=== PATIENT | female | born 1965 | race Caucasian/White ===

== ENCOUNTER → 2017-08-16 13:51 | Outpatient (CLI) | payer MEDICARE, OTHER | END | disposition home or self-care (01) | LOC: D.MAMMO 11:00 | DX: Z12.31 Encounter for screening mammogram for malignant neoplasm of breast (principal) ==

== ENCOUNTER 2018-02-03 09:54 | Emergency (ER) | payer MEDICARE, OTHER ==
[2018-02-03 10:48] LABS: APPEARANCE CLEAR (CLEAR); COLOR YELLOW (YELLOW)
[2018-02-03 10:49] LABS: BACTERIA MODERATE /hpf (NONE SEEN); BILIRUBIN NEGATIVE (NEGATIVE); EPITHELIAL CELLS 0-5 /hpf (0-5); GLUCOSE NEGATIVE (NEGATIVE); KETONE NEGATIVE (NEGATIVE); NITRITE NEGATIVE (NEGATIVE); PROTEIN 1+ mg/dL (NEGATIVE); RED CELLS - URINE 0-5 /hpf (0-5); SPECIFIC GRAVITY 1.015 (1.005-1.020); UROBILINOGEN NORMAL (NORMAL); WHITE CELLS - URINE NSEEN /hpf (0-5)
== END 2018-02-03 11:39 ==
LOC: D.ER 09:54
PROVIDERS: Emergency Medicine
DX: M54.5 Low back pain (principal)

== ENCOUNTER → 2018-07-24 10:20 | Outpatient (CLI) | payer MEDICARE, OTHER | END | disposition home or self-care (01) | LOC: D.MRI 10:20 | DX: M51.36 Other intervertebral disc degeneration, lumbar region (principal); R53.1 Weakness ==

== ENCOUNTER 2019-04-21 09:28 | Emergency (ER) | payer MEDICARE, OTHER ==
[~2019-04-21] VITALS: Ht 167.6 cm; Wt 120.9 kg
[2019-04-21 09:29] VITALS: Ht 167.6 cm; Wt 120.9 kg
[2019-04-21] MEDS ORDERED: KLONOPIN0.5 MG PO (09:31)
[2019-04-21] MEDS ORDERED: CO Q-10200 MG PO (09:31)
[2019-04-21] MEDS ORDERED: SYNTHROID112 MCG PO (09:31)
[2019-04-21] MEDS ORDERED: LISINOPRIL5 MG PO (09:32)
[2019-04-21] MEDS ORDERED: FISH OIL 1,0001 CA1 PO (09:32)
[2019-04-21] MEDS ORDERED: CENTRUM COMPLE1 EACH PO (09:32)
[2019-04-21 10:05] LABS: BASOPHILS 0.3 % (0-2); EOSINOPHILS 1.5 % (0-7); HEMATOCRIT 43.3 % (36.0-48.0); HEMOGLOBIN 14.8 g/dL (12-16); IMMATURE GRANULOCYTES 0.3 % (0-5); LYMPHOCYTES 21.1 % (15-50); MCH 30.9 pg (26.0-34.0); MCHC 34.2 g/dL (31.0-37.0); MCV 90.4 fL (80.0-100.0); MEAN PLATELET VOLUME 9.6 fL (7.4-10.4); MONOCYTES 10.9 % (2-11); NEUTROPHILS 65.9 % (40-80); RBC 4.79 10x6/uL (4.00-5.40); RDW 14.7 % (11.5-14.5); WBC 6.5 10x3/uL (4.8-10.8)
[2019-04-21 10:06] LABS: PLATELET COUNT 252 10x3/uL (130-400)
[2019-04-21 10:08] LABS: APPEARANCE CLEAR (CLEAR); COLOR YELLOW (YELLOW)
[2019-04-21 10:09] LABS: BILIRUBIN NEGATIVE (NEGATIVE); GLUCOSE NEGATIVE (NEGATIVE); KETONE NEGATIVE (NEGATIVE); NITRITE NEGATIVE (NEGATIVE); PROTEIN NEGATIVE (NEGATIVE); SPECIFIC GRAVITY 1.005 (1.005-1.020); UROBILINOGEN NORMAL (NORMAL)
[2019-04-21 10:14] LABS: INR 1.05 (0.85-1.17); PROTIME 13.2 SECONDS (11.6-15.0)
[2019-04-21 10:18] LABS: UDS - AMPHET NEGATIVE QUAL (NEGATIVE); UDS - BARB NEGATIVE QUAL (NEGATIVE); UDS - BENZO NEGATIVE QUAL (NEGATIVE); UDS - COCAINE NEGATIVE QUAL (NEGATIVE); UDS - OPIATE NEGATIVE QUAL (NEGATIVE); UDS - PCP NEGATIVE QUAL (NEGATIVE); UDS - THC NEGATIVE QUAL (NEGATIVE)
[2019-04-21 10:23] LABS: ALBUMIN 3.7 g/dL (3.4-5.0); ALKALINE PHOSPHATASE 109 U/L (46-116); ALT (SGPT) 245 U/L (10-68); BILIRUBIN - TOTAL 0.76 mg/dL (0.2-1.3); CALC OSMOLALITY 274 mosm/kg (275-300); CALCIUM 9.6 mg/dL (8.5-10.1); CARBON DIOXIDE 27.2 mmol/L (21.0-32.0); CHLORIDE - SERUM 101 mmol/L (98-107); CREATININE - SERUM 1.4 mg/dL (0.6-1.3); GLUCOSE 128 mg/dL (74-106); POTASSIUM - SERUM 3.7 mmol/L (3.5-5.1); PROTEIN - SERUM 7.5 g/dL (6.4-8.2); SODIUM 137 mmol/L (136-145); UREA NITROGEN 11 mg/dL (7-18); eGFR NON AFRICAN AMERICAN 41 mL/min (90-120)
[2019-04-21 10:33] LABS: CKMB 0.5 U/L (0.0-3.6); CREATINE KINASE 46 UL (21-215); MAGNESIUM - SERUM 2.2 mg/dL (1.8-2.4); TROPONIN-I < 0.017 ng/mL (0.000-0.060)
[2019-04-21 12:00] VITALS: BP 115/85
== END 2019-04-21 12:00 | disposition home or self-care (01) ==
LOC: D.ER 09:28
PROVIDERS: Family Medicine
DX: K71.6 Toxic liver disease with hepatitis, not elsewhere classified (principal); F31.9 Bipolar disorder, unspecified; N28.9 Disorder of kidney and ureter, unspecified; I10 Essential (primary) hypertension

== ENCOUNTER 2019-04-27 15:11 | Emergency (ER) | payer MEDICARE, OTHER ==
[~2019-04-27] VITALS: Ht 167.6 cm; Wt 117.3 kg
[~2019-04-27 15:11] MED LIST: CENTRUM COMPLE1 EACH PO; CO Q-10200 MG PO; FISH OIL 1,0001 CA1 PO; KLONOPIN0.5 MG PO; LISINOPRIL5 MG PO; SYNTHROID112 MCG PO
[2019-04-27 15:14] VITALS: Ht 167.6 cm; Wt 117.3 kg
[2019-04-27] MEDS ORDERED: OTHER MEDS (15:16)
[2019-04-27 15:39] LABS: BASOPHILS 0.3 % (0-2); EOSINOPHILS 1.8 % (0-7); HEMATOCRIT 44.5 % (36.0-48.0); HEMOGLOBIN 15.3 g/dL (12-16); IMMATURE GRANULOCYTES 0.2 % (0-5); LYMPHOCYTES 15.2 % (15-50); MCH 30.8 pg (26.0-34.0); MCHC 34.4 g/dL (31.0-37.0); MCV 89.7 fL (80.0-100.0); MEAN PLATELET VOLUME 9.1 fL (7.4-10.4); MONOCYTES 12.6 % (2-11); NEUTROPHILS 69.9 % (40-80); PLATELET COUNT 213 10x3/uL (130-400); RBC 4.96 10x6/uL (4.00-5.40); RDW 14.8 % (11.5-14.5); WBC 6.3 10x3/uL (4.8-10.8)
--- NOTE | 2019-04-27 15:49 | NUR ---
THE SUICIDE ASSESSMENT RATES HER SCORE LOW, SHE DENIES SI AND DOES NOT REQUIRE 1:1 OBSERVATION.
[2019-04-27 15:53] LABS: ALBUMIN 3.6 g/dL (3.4-5.0); ANION GAP 19.4 mmol/L (8-16); BILIRUBIN - TOTAL 0.99 mg/dL (0.2-1.3); CALCIUM 9.5 mg/dL (8.5-10.1); CARBON DIOXIDE 20.2 mmol/L (21.0-32.0); CREATININE - SERUM 1.9 mg/dL (0.6-1.3); POTASSIUM - SERUM 3.6 mmol/L (3.5-5.1); PROTEIN - SERUM 7.5 g/dL (6.4-8.2)
[2019-04-27 16:25] LABS: CREATINE KINASE 53 UL (21-215); TROPONIN-I < 0.017 ng/mL (0.000-0.060)
[2019-04-27 18:50] VITALS: BP 125/71
[2019-04-27] MEDS ORDERED: TORADOL10 MG PO (21:06)
== END 2019-04-27 18:52 | disposition home or self-care (01) ==
LOC: D.ER 15:11
PROVIDERS: Family Medicine
DX: M25.572 Pain in left ankle and joints of left foot (principal); M25.571 Pain in right ankle and joints of right foot; Z59.0 Homelessness; I95.9 Hypotension, unspecified; E86.0 Dehydration; W19.XXXA Unspecified fall, initial encounter

== ENCOUNTER 2019-04-27 19:52 | Emergency (ER) | payer MEDICARE, OTHER ==
[~2019-04-27] VITALS: Ht 167.6 cm; Wt 117.4 kg
[~2019-04-27 19:52] MED LIST changes: +OTHER MEDS
[2019-04-27 19:58] VITALS: Ht 167.6 cm; Wt 117.4 kg
[2019-04-27] MEDS ORDERED: TORADOL10 MG PO (21:06)
[2019-04-27 21:47] VITALS: BP 114/77
== END 2019-04-27 21:47 | disposition home or self-care (01) ==
LOC: D.ER 19:52
DX: M54.5 Low back pain (principal); Z59.0 Homelessness

== ENCOUNTER 2019-05-17 20:22 | Emergency (ER) | payer MEDICARE, OTHER ==
[~2019-05-17] VITALS: Ht 167.6 cm; Wt 117.3 kg
[~2019-05-17 20:22] MED LIST changes: +TORADOL10 MG PO
[2019-05-17 20:30] VITALS: Ht 167.6 cm; Wt 117.3 kg
[2019-05-17] MEDS ORDERED: VRAYLAR3 MG PO (20:40)
[2019-05-17] MEDS ORDERED: LAMICTAL25 MG PO (20:41)
[2019-05-17] MEDS ORDERED: NORVASC5 MG PO (20:42)
[2019-05-17] MEDS ORDERED: CENTRUM SILVER1 EAC3 PO (20:42)
[2019-05-17] MEDS ORDERED: PHAZYME 125 MG125 MG (20:42)
[2019-05-17] MEDS ORDERED: PROZAC20 MG PO (20:42)
[2019-05-17] MEDS ORDERED: BAYER CHEWABLE81 MG PO (20:43)
[2019-05-17] MEDS ORDERED: HALDOL5 MG (20:44)
[2019-05-17] MEDS ORDERED: CATAPRES0.1 MG PO (20:44)
[2019-05-17] MEDS ORDERED: SEROQUEL50 MG PO (20:44)
[2019-05-17 21:10] LABS: BASOPHILS 0.5 % (0-2); EOSINOPHILS 4.5 % (0-7); HEMATOCRIT 39.4 % (36.0-48.0); HEMOGLOBIN 13.2 g/dL (12-16); IMMATURE GRANULOCYTES 0.2 % (0-5); LYMPHOCYTES 23.6 % (15-50); MCH 30.1 pg (26.0-34.0); MCHC 33.5 g/dL (31.0-37.0); MEAN PLATELET VOLUME 9.3 fL (7.4-10.4); MONOCYTES 13.9 % (2-11); NEUTROPHILS 57.3 % (40-80); PLATELET COUNT 184 10x3/uL (130-400); RBC 4.38 10x6/uL (4.00-5.40); WBC 6.4 10x3/uL (4.8-10.8)
[2019-05-17 21:26] LABS: ALBUMIN 3.3 g/dL (3.4-5.0); ANION GAP 12.6 mmol/L (8-16); BILIRUBIN - TOTAL 0.39 mg/dL (0.2-1.3); CALCIUM 9.1 mg/dL (8.5-10.1); CARBON DIOXIDE 29.3 mmol/L (21.0-32.0); MAGNESIUM - SERUM 2.1 mg/dL (1.8-2.4); POTASSIUM - SERUM 3.9 mmol/L (3.5-5.1); PROTEIN - SERUM 6.7 g/dL (6.4-8.2)
[2019-05-17 21:56] LABS: UDS - AMPHET NEGATIVE QUAL (NEGATIVE); UDS - BARB NEGATIVE QUAL (NEGATIVE); UDS - BENZO NEGATIVE QUAL (NEGATIVE); UDS - COCAINE NEGATIVE QUAL (NEGATIVE); UDS - OPIATE NEGATIVE QUAL (NEGATIVE); UDS - PCP NEGATIVE QUAL (NEGATIVE); UDS - THC NEGATIVE QUAL (NEGATIVE)
[2019-05-17 22:11] LABS: APPEARANCE CLEAR (CLEAR); BILIRUBIN NEGATIVE (NEGATIVE); COLOR YELLOW (YELLOW); GLUCOSE NEGATIVE (NEGATIVE); KETONE NEGATIVE (NEGATIVE); NITRITE NEGATIVE (NEGATIVE); PROTEIN NEGATIVE (NEGATIVE); UROBILINOGEN NORMAL (NORMAL)
[2019-05-17 22:12] LABS: BACTERIA MANY /hpf (NONE SEEN); EPITHELIAL CELLS 0-5 /hpf (0-5); RED CELLS - URINE 0-5 /hpf (0-5); WHITE CELLS - URINE 0-5 /hpf (0-5)
[2019-05-18 03:16] VITALS: BP 174/85
== END 2019-05-18 03:18 | disposition home or self-care (01) ==
LOC: D.ER 20:22
PROVIDERS: Family Medicine
DX: F22 Delusional disorders (principal); F41.9 Anxiety disorder, unspecified; F20.9 Schizophrenia, unspecified

== ENCOUNTER → 2019-07-09 07:26 | Outpatient (CLI) | payer MEDICARE, OTHER ==
[2019-05-17 20:30] VITALS: BMI 41.7
[~2019-07-09 07:26] MED LIST changes: +BAYER CHEWABLE81 MG PO; +CATAPRES0.1 MG PO; +CENTRUM SILVER1 EAC3 PO; +HALDOL5 MG; +LAMICTAL25 MG PO; +NORVASC5 MG PO; +PHAZYME 125 MG125 MG; +PROZAC20 MG PO; +SEROQUEL50 MG PO; +VRAYLAR3 MG PO
== END | disposition home or self-care (01) ==
LOC: D.US 06-13 07:30
PROVIDERS: ATTEND Family Medicine
DX: R94.5 Abnormal results of liver function studies (principal)